=== PATIENT | female | born 1985 | race Caucasian/White ===

== ENCOUNTER 2017-07-19 06:46 | Emergency (ER) | payer MEDICAID ==
[2017-07-19 07:50] LABS: RAPID GROUP A STREP NEGATIVE (NEGATIVE)
== END 2017-07-19 08:30 | disposition home or self-care (01) ==
LOC: EDH 06:46
DX: J20.9 Acute bronchitis, unspecified (principal); Z72.0 Tobacco use; Z71.6 Tobacco abuse counseling
CPT/HCPCS: 71046; 81025; 87804; 87880